=== PATIENT | female | born 1995 | race Caucasian/White ===

== ENCOUNTER 2018-06-14 07:30 | Emergency (ER) | payer OTHER, MEDICAID, SELFPAY ==
[2018-06-14 07:39] VITALS: BP 129/74; PULSE 89; RESP 18; TEMP 36.5; O2SAT 97
--- NOTE | 2018-06-14 07:48 | ED_ITS ---
HPI - Skin/Abscess/Foreign Bdy General Chief complaint: Skin/Abscess/Foreign Body Stated complaint: cyst in right arm pit Time Seen by Provider: 06/14/18 07:37 Source: patient Mode of arrival: ambulatory Limitations: no limitations History of Present Illness HPI narrative: 23-year-old female otherwise healthy here for evaluation of an infection and possible abscess to her right axilla. She states she noted it ea rlier this week. She has had 1 prior episode where she had an abscess that spontaneously drained on her knee. States she started noticing the swelling several days ago has worsened since that. Family member outlined the redness on her arm yesterday and since then the redness has progressed outside of this marking. Related Data Previous Rx's Medication Instructions Recorded sulfamethoxazole-trimethoprim 1 tab PO BID 5 Days #10 tab 06/14/18 [Bactrim DS] Allergies Allergy/AdvReac Type Severity Reaction Status Date / Time No Known Drug Allergies Allergy Verified 06/14/18 07:43 Review of Systems Constitutional Denies fever(s) Musculoskeletal Denies tingling Comments: no right shoulder or right elbow discomfort. Integumentary/Breasts Comments: Redness and swelling to the right adnexa Neurologic Denies tingling Hematologic/Lymphatic Denies easy bleeding and Denies easy bruising PFSH Medical History Healthy adult (Acute) Social History Smoking Status: Current some day smoker Social History Smoking Status: Current some day smoker Exam Initial Vital Signs Initial Vital Signs: Vital Signs Temperature 97.7 F 06/14/18 07:39 Pulse Rate 89 06/14/18 07:39 Respiratory Rate 18 06/14/18 07:39 Blood Pressure 129/74 06/14/18 07:39 Pulse Oximetry 97 06/14/18 07:39 Const General: cooperative, healthy appearing, comfortable, well developed, well groomed and No acute distress Orientation: alert and oriented x3 HENMT Head: normal to inspection and normocephalic Resp Effort & Inspection: normal respiratory effort Cardio Rate: regular rate Pulses: radial pulses present on the right Skin Other: patient with a 3 x 3 cm area of induration on the right axilla with approximately 15 cm area of redness extending down her arm on the medial aspect. No active draining. Psych Appearance: grossly normal and well kempt Procedures Abscess I/D Site: upper extremity Side (if applicable): right Local Anesthetic: lidocaine 1% Amount of anesthesia used (mL): 6 Technique: incised with #11 blade Irrigation: No Packing used?: none Course Vital Signs - 8 hr 06/14/18 07:39 Temperature 97.7 F Pulse Rate 89 Respiratory Rate 18 Blood Pressure 129/74 Pulse Oximetry 97 MDM - Skin/Abscess/Foreign Bdy MDM Narrative Medical decision making narrative: Bedside ultrasound showed a collection of abscess in the right axilla. This was incised with 11 braided with expression of purulent material. Patient does have an extensive area of cellulitis surrounding this area. Given the cellulitis will send home on a prescription for antibiotics. Patient was given care instructions and return precautions. She expressed understanding and agreement plan. Discharge Plan Departure Patient Disposition: Home Clinical Impression: Abscess of skin or subcutaneous tissue Qualifiers: Site of cutaneous abscess: extremity Site of cutaneous abscess of extremity: upper extremity Laterality: right Qualified Code(s): L02.413 - Cutaneous abscess of right upper limb Cellulitis Qualifiers: Site of cellulitis: extremity Site of cellulitis of extremity: axilla Laterality: right Qualified Code(s): L03.111 - Cellulitis of right axilla Instructions: DI for Incision and Drainage Activity Restrictions/Additional Instructions: change the bandage as needed. you can shower like normal. I would avoid using deodorant or shaving for right now. Expect some drainage. Take the antibiotics as directed. Return to the emergency department for any new or worsening symptoms Prescriptions: New sulfamethoxazole-trimethoprim [Bactrim DS] 800-160 mg tablet 1 tab PO BID 5 Days Qty: 10 RF: 0
== END 2018-06-14 08:10 | disposition home or self-care (01) ==
LOC: ED 07:59
PROVIDERS: Emergency Provider Emergency Medicine
DX: L02.413 Cutaneous abscess of right upper limb (principal)
CPT/HCPCS: 10060; 99282; 99283

== ENCOUNTER 2018-06-16 08:39 | Inpatient (IN) | payer OTHER, MEDICAID, SELFPAY ==
[2018-06-16] VITALS (8 sets, daily range): BP systolic 109–125; BP diastolic 60–72; PULSE 72–88; RESP 12–18; TEMP 36.3–37.4; O2SAT 99–100; BMI 26.2
--- NOTE | 2018-06-16 09:29 | ED.SKABFB ---
HPI - Skin/Abscess/Foreign Bdy General Chief complaint: Skin/Abscess/Foreign Body Stated complaint: Cyst R Underarm Time Seen by Provider: 06/16/18 09:29 Source: patient, old records reviewed and other (boyfriend) Mode of arrival: ambulatory Limitations: no limitations History of Present Illness HPI narrative: This is a 23-year-old female comes to the emergency department with complaint of worsening abscess. Patient states she was seen on the 14 of June. She had an abscess which was drained there was purulent fluid and she was started on Bactrim. Patient states that the redness has continued to spread and an area adjacent to the abscess seems to be worsening or failing back up. Patient states that she continues to have pain. She states she has been fighting fevers and pain taking ibuprofen at home. She denies any numbness, weakness or tingling in her extremity. She states she has been taking the antibiotics and she has had 5 doses total which is consistent from when they were prescribed. The redness has extended several cm beyond the original line from the day that she was seen. Related Data Previous Rx's Medication Instructions Recorded sulfamethoxazole-trimethoprim 1 tab PO BID 5 Days #10 tab 06/14/18 [Bactrim DS] Allergies Allergy/AdvReac Type Severity Reaction Status Date / Time No Known Drug Allergies Allergy Verified 06/14/18 07:43 Review of Systems Review of Systems ROS Unobtainable: All systems reviewed & are unremarkable except as noted in HPI and below Constitutional Reports fever(s) Musculoskeletal Reports as per HPI, Denies arthralgias, Denies limited range of motion, Denies numbness, Denies tingling and Reports other (Pain, swelling draining abscess.) Integumentary/Breasts Reports as per HPI Neurologic Denies focal weakness, Denies numbness and Denies tingling [facility] Medical History H/O wisdom tooth extraction (Acute) HELLP syndrome (HELLP), third trimester (Acute) History of UTI (Acute) History of asthma (Acute) Healthy adult (Acute) Family History Mother Osteoarthritis Grandmother Heart disease Lung disease Father Healthy adult Brother Healthy adult Brother Healthy adult Sister Healthy adult Sister Healthy adult Social History household members: significant other Smoking Status: Current some day smoker alcohol intake: current Social History household members: significant other Smoking Status: Current some day smoker alcohol intake: current Exam Narrative Exam Narrative: GENERAL: Alert and oriented x three, well-nourished, well-appearing female in mild distress. HEENT: Head normocephalic, atraumatic, EOMI, pupils reactive, face symmetric, moist mucous membranes NECK: Supple, full range of motion CARDIOVASCULAR: Regular rate and rhythm without murmurs, rubs or gallops. RESPIRATORY: Breath sounds equal bilaterally, no wheezes rales or rhonchi. ABDOMEN: Soft, nontender. Normoactive bowel sounds all 4 quadrants. No guarding or rebound, rigidity, no mass EXTREMITIES: Normal range of motion, no clubbing or edema. Neurovascularly intact. Patient has 2+ radial pulse on the right, full range of motion of her arm and fingers. The patient has normal strength. Normal sensation throughout the arm. Just distal to her right axilla there is a 1 cm opening with no active drainage. There is an area of surrounding induration, area is not fluctuent with palpation. patient has an area of cellulitis extending about 8 cm beyond. Patient has a line was drawn when she was initially seen in the hospital. It appears to be extending about 4 5 cm beyond that line. A line was drawn and dated for time/date prior to leaving ER for further monitoring. NEUROLOGICAL: Cranial nerves II through XII grossly intact. Moving all extremities SKIN: Warm, dry, no petechiae, see above. Initial Vital Signs Initial Vital Signs: Vital Signs Temperature 97.4 F L 06/16/18 08:42 Pulse Rate 88 06/16/18 08:42 Respiratory Rate 12 06/16/18 08:42 Blood Pressure 115/60 06/16/18 08:42 Pulse Oximetry 100 06/16/18 08:42 Course Orders Ordered: ED Orders 06/16/18 15:46 Education, smoking cessation ONGOING 06/16/18 19:00 MRSA PCR Routine 06/17/18 05:00 BMP [Basic Metabolic Panel] Routine CBC [Complete Blood Count AUTO DIFF] Routine Procalcitonin Routine Acetaminophen (Tylenol) 650 mg PO Q6HR PRN PRN Reason: As Needed for Fever/Mild Pain Al Hydrox/Mg Hydrox/Simethicone (Maalox Plus) 30 ml PO Q6HR PRN PRN Reason: Dyspepsia Bisacodyl (Dulcolax) 10 mg PO DAILY PRN PRN Reason: Constipation Heparin Sodium (Porcine) (Heparin) 5,000 unit SUBCUT BID [facility] Piperacillin/Tazobactam/Dextrose (Zosyn) 3.375 gm in 50 mls @ 100 mls/hr IV Q8H [facility] Last Admin: 06/16/18 17:41 Dose: 100 mls/hr Magnesium Hydroxide (Milk Of Magnesia) 30 ml PO DAILY PRN PRN Reason: Constipation Ondansetron HCl (Zofran Odt) 4 mg PO Q8HR PRN PRN Reason: Nausea And Vomiting Ondansetron HCl (Zofran) 4 mg IV Q8HR PRN PRN Reason: Nausea And Vomiting Promethazine HCl (Phenadoz) 12.5 mg [place] Q6HR PRN PRN Reason: Nausea And Vomiting Sennosides (Senna) 17.2 mg PO BEDTIME [facility] Discontinued Medications Gabapentin (Neurontin) 300 mg PO BEDTIME [facility] Vancomycin HCl 1,250 mg/ (Sodium Chloride) 250 mls @ 250 mls/hr IV NOW ONE Stop: 06/16/18 10:16 Last Infusion: 06/16/18 12:35 Dose: 0 mls/hr Admin: 06/16/18 11:15 Dose: 250 mls/hr Vital Signs - 8 hr 06/16/18 11:35 06/16/18 12:49 06/16/18 15:35 Temperature 97.5 F L 98.8 F Pulse Rate 79 81 72 Respiratory Rate 17 16 16 Blood Pressure 109/72 111/62 Blood Pressure [Left Arm] 125/69 Pulse Oximetry 100 100 99 MDM - Skin/Abscess/Foreign Bdy Lab Data Result diagrams: 06/16/18 09:25 06/16/18 09:25 Lab Results 06/16/18 06/16/18 06/16/18 Range/Units 09:25 09:25 09:25 WBC 9.4 (4.5-11.0) X10^3/uL RBC 4.45 (4.0-5.2) X10^6/uL Hgb 12.7 (12.0-16.0) g/dL Hct 38.0 (36-46) % MCV 85.5 (80-100) fL MCH 28.6 (26-34) PG MCHC 33.4 (30-36) % RDW 13.7 (11.6-14.8) % Plt Count 188 (150-400) X10^3/uL Neut % (Auto) 81.2 H (50-75) % Lymph % (Auto) 11.3 L (25-40) % Tucker % (Auto) 6.1 (3-14) % Eos % (Auto) 0.7 L (2-4) % Baso % (Auto) 0.7 (0-2) % Neut # (Auto) 7600 H (7632-9184) /uL Lymph # (Auto) 1100 (3505-3976) /uL Tucker # (Auto) 600 (0-900) /uL Eos # (Auto) 100 (0-450) /uL Baso # (Auto) 100 (0-100) /uL PT 14.1 H (10.1-12.7) SECONDS INR 1.2 (0.9-1.3) APTT 29 (26.4-36.2) SECONDS Sodium 137 (137-145) mmol/L Potassium 3.6 (3.4-5.1) mmol/L Chloride 100 (98-107) mmol/L Carbon Dioxide 25 (22-32) mmol/L BUN 9 (7-17) mg/dL Creatinine 0.70 (0.52-1.04) mg/dL Estimated GFR > 60.0 (>60) mL/min BUN/Creatinine Ratio 12.9 (6-22) Glucose 154 H (70-100) mg/dL Lactate (0.7-2.1) mmol/L Calcium 9.0 (8.4-10.2) mg/dL Total Bilirubin 0.7 (0.2-1.3) mg/dL Procalcitonin (<0.5) ng/mL 06/16/18 06/16/18 Range/Units 09:25 09:41 WBC (4.5-11.0) X10^3/uL RBC (4.0-5.2) X10^6/uL Hgb (12.0-16.0) g/dL Hct (36-46) % MCV (80-100) fL MCH (26-34) PG MCHC (30-36) % RDW (11.6-14.8) % Plt Count (150-400) X10^3/uL Neut % (Auto) (50-75) % Lymph % (Auto) (25-40) % Tucker % (Auto) (3-14) % Eos % (Auto) (2-4) % Baso % (Auto) (0-2) % Neut # (Auto) (9011-9654) /uL Lymph # (Auto) (7232-1385) /uL Tucker # (Auto) (0-900) /uL Eos # (Auto) (0-450) /uL Baso # (Auto) (0-100) /uL PT (10.1-12.7) SECONDS INR (0.9-1.3) APTT (26.4-36.2) SECONDS Sodium (137-145) mmol/L Potassium (3.4-5.1) mmol/L Chloride (98-107) mmol/L Carbon Dioxide (22-32) mmol/L BUN (7-17) mg/dL Creatinine (0.52-1.04) mg/dL Estimated GFR (>60) mL/min BUN/Creatinine Ratio (6-22) Glucose (70-100) mg/dL Lactate 1.4 (0.7-2.1) mmol/L Calcium (8.4-10.2) mg/dL Total Bilirubin (0.2-1.3) mg/dL Procalcitonin < 0.05 (<0.5) ng/mL MDM Narrative Medical decision making narrative: Patient had an abscess drained. She has induration but no clear fluctuance so formal ultrasound was ordered as she appears to be failing outpatient antibiotics after incision and drainage. Patient started on vancomycin. Chart does not show prior culture. Ultrasound of the upper extremity was Dr. Chowdary from General surgery was consulted and she evaluated patient. Feels that this is a very small fluid collection that she would see how the patient responds to IV antibiotics if not improving then will plan for surgical drainage but at this time would initially start with just IV antibiotics. Plan for admission to the hospitalist, spoke with Dr. Vazquez who accepts for inpatient. Discharge Plan Departure Patient Disposition: Admitted As Inpatient Clinical Impression: Cellulitis of arm, right, Abscess of arm, right Discharge Date/Time: 06/16/18 12:46 Interventions: ED Discharge Assessment Last Done: 06/16/18 12:46 Admit Date/Time: 06/16/18 11:54 Admit Provider: Kiara Vazquez
[2018-06-16 09:46] LABS: Add Manual Diff / Slide Review NO; Basophils Absolute Auto 100 /uL (0-100); Basophils Percent Auto 0.7 % (0-2); Eosinophils Absolute Auto 100 /uL (0-450); Eosinophils Percent Auto 0.7 % (2-4); Hemoglobin 12.7 g/dL (12.0-16.0); Lymphocytes Absolute Auto 1100 /uL (1100-4500); Lymphocytes Percent Auto 11.3 % (25-40); Mean Corpuscular HGB Conc 33.4 % (30-36); Mean Corpuscular Hemoglobin 28.6 PG (26-34); Mean Corpuscular Volume 85.5 fL (80-100); Monocytes Absolute Auto 600 /uL (0-900); Monocytes Percent Auto 6.1 % (3-14); Neutrophils Absolute Auto 7600 /uL (1500-7000); Neutrophils Percent Auto 81.2 % (50-75); Platelet Count 188 X10^3/uL (150-400); Red Blood Cell Count 4.45 X10^6/uL (4.0-5.2); Red Cell Distribution Width 13.7 % (11.6-14.8); White Blood Cell Count 9.4 X10^3/uL (4.5-11.0)
[2018-06-16 09:47] LABS: INR 1.2 (0.9-1.3); Prothrombin Time 14.1 SECONDS (10.1-12.7)
[2018-06-16 09:49] LABS: PTT Partial Thromboplastin Tim 29 SECONDS (26.4-36.2)
[2018-06-16 10:12] LABS: BUN Creatinine Ratio 12.9 (6-22); Bilirubin Total 0.7 mg/dL (0.2-1.3); Blood Urea Nitrogen 9 mg/dL (7-17); Carbon Dioxide 25 mmol/L (22-32); Chloride 100 mmol/L (98-107); Estimated Glomerular Filt Rate > 60.0 mL/min (>60); Glucose 154 mg/dL (70-100); HEMOLYSIS < 15 (0-50); Lactate (Lactic Acid) 1.4 mmol/L (0.7-2.1); Potassium 3.6 mmol/L (3.4-5.1); Sodium 137 mmol/L (137-145)
--- NOTE | 2018-06-16 10:14 | DI.US.S_ITS ---
PROCEDURE: US EXTREMELY NONVASC UPPER RT INDICATIONS: RECENT ABSCESS, POST INCISION AND DRAINAGE, WORSENING X 3 DA TECHNIQUE: Real-time scanning was performed of the right upper arm and axilla, with image documentation. COMPARISON: None. FINDINGS: Targeted ultrasound of the area of concern in the upper-inner right arm at the site of reported prior incision and drainage demonstrates a 1.2 x 1.4 x 0.9 cm oval indistinct mixed internal echogenicity fluid collection with mild peripheral vascularity. There is surrounding soft tissue edema. There is a second 1.9 x 1.8 x 0.6 cm irregular heterogeneously hypoechoic fluid collection located approximately 3 cm distal to the area described above within the right upper arm. This also demonstrates mild peripheral vascularity on Doppler ultrasound. There is surrounding soft tissue edema. Targeted ultrasound of the right axilla demonstrates right axillary lymphadenopathy, with the largest node measuring up to 2.7 x 1.9 x 1.3 cm. There is no demonstrates cortical thickening up to 7 mm. IMPRESSION: 1. 1.2 cm irregular fluid collection of the right upper inner arm at the site of reported prior incision and drainage, with additional 1.9 cm fluid collection approximately 3 cm distal to this area, with adjacent soft tissue edema. These fluid collections may represent phlegmon/developing abscesses given mild peripheral vascularity, versus hematoma. Consider followup ultrasound to demonstrate resolution. 2. Right axillary lymphadenopathy, likely reactive. Dictated by: Alcon Rodriguez M.D. on 06/16/2018 at 10:54 Approved by: Alcon Rodriguez M.D. on 06/16/2018 at 11:01
--- NOTE | 2018-06-16 10:21 | ED_ITS ---
HPI - Skin/Abscess/Foreign Bdy General Chief complaint: Skin/Abscess/Foreign Body Stated complaint: Cyst R Underarm Time Seen by Provider: 06/16/18 09:29 Source: patient, old records reviewed and other (boyfriend) Mode of arrival: ambulatory Limitations: no limitations History of Present Illness HPI narrative: This is a 23-year-old female comes to the emergency department with complaint of worsening abscess. Patient states she was seen on the 14 of June. She had an abscess which was drained there was purulent fluid and she was started on Bactrim. Patient states that the redness has continued to spread and an area adjacent to the abscess seems to be worsening or failing back up. Patient states that she continues to have pain. She states she has been fighting fevers and pain taking ibuprofen at home. She denies any numbness, weakness or tingling in her extremity. She states she has been taking the antibiotics and she has had 5 doses total which is consistent from when they were prescribed. The redness has extended several cm beyond the original line from the day that she was seen. Related Data Previous Rx's Medication Instructions Recorded sulfamethoxazole-trimethoprim 1 tab PO BID 5 Days #10 tab 06/14/18 [Bactrim DS] Allergies Allergy/AdvReac Type Severity Reaction Status Date / Time No Known Drug Allergies Allergy Verified 06/14/18 07:43 Review of Systems Review of Systems ROS Unobtainable: All systems reviewed & are unremarkable except as noted in HPI and below Constitutional Reports fever(s) Musculoskeletal Reports as per HPI, Denies arthralgias, Denies limited range of motion, Denies numbness, Denies tingling and Reports other (Pain, swelling draining abscess.) Integumentary/Breasts Reports as per HPI Neurologic Denies focal weakness, Denies numbness and Denies tingling [facility] Medical History H/O wisdom tooth extraction (Acute) HELLP syndrome (HELLP), third trimester (Acute) History of UTI (Acute) History of asthma (Acute) Healthy adult (Acute) Family History Mother Osteoarthritis Grandmother Heart disease Lung disease Father Healthy adult Brother Healthy adult Brother Healthy adult Sister Healthy adult Sister Healthy adult Social History household members: significant other Smoking Status: Current some day smoker alcohol intake: current Social History household members: significant other Smoking Status: Current some day smoker alcohol intake: current Exam Narrative Exam Narrative: GENERAL: Alert and oriented x three, well-nourished, well- appearing female in mild distress. HEENT: Head normocephalic, atraumatic, EOMI, pupils reactive, face symmetric, moist mucous membranes NECK: Supple, full range of motion CARDIOVASCULAR: Regular rate and rhythm without murmurs, rubs or gallops. RESPIRATORY: Breath sounds equal bilaterally, no wheezes rales or rhonchi. ABDOMEN: Soft, nontender. Normoactive bowel sounds all 4 quadrants. No guarding or rebound, rigidity, no mass EXTREMITIES: Normal range of motion, no clubbing or edema. Neurovascularly intact. Patient has 2+ radial pulse on the right, full range of motion of her arm and fingers. The patient has normal strength. Normal sensation throughout the arm. Just distal to her right axilla there is a 1 cm opening with no active drainage. There is an area of surrounding induration, area is not fluctuent with palpation. patient has an area of cellulitis extending about 8 cm beyond. Patient has a line was drawn when she was initially seen in the hospital. It appears to be extending about 4 5 cm beyond that line. A line was drawn and dated for time/date prior to leaving ER for further monitoring. NEUROLOGICAL: Cranial nerves II through XII grossly intact. Moving all extremities SKIN: Warm, dry, no petechiae, see above. Initial Vital Signs Initial Vital Signs: Vital Signs Temperature 97.4 F L 06/16/18 08:42 Pulse Rate 88 06/16/18 08:42 Respiratory Rate 12 06/16/18 08:42 Blood Pressure 115/60 06/16/18 08:42 Pulse Oximetry 100 06/16/18 08:42 Course Orders Ordered: ED Orders 06/16/18 15:46 Education, smoking cessation ONGOING 06/16/18 19:00 MRSA PCR Routine 06/17/18 05:00 BMP [Basic Metabolic Panel] Routine CBC [Complete Blood Count AUTO DIFF] Routine Procalcitonin Routine Acetaminophen (Tylenol) 650 mg PO Q6HR PRN PRN Reason: As Needed for Fever/Mild Pain Al Hydrox/Mg Hydrox/Simethicone (Maalox Plus) 30 ml PO Q6HR PRN PRN Reason: Dyspepsia Bisacodyl (Dulcolax) 10 mg PO DAILY PRN PRN Reason: Constipation Heparin Sodium (Porcine) (Heparin) 5,000 unit SUBCUT BID [facility] Piperacillin/Tazobactam/Dextrose (Zosyn) 3.375 gm in 50 mls @ 100 mls/hr IV Q8H [facility] Last Admin: 06/16/18 17:41 Dose: 100 mls/hr Magnesium Hydroxide (Milk Of Magnesia) 30 ml PO DAILY PRN PRN Reason: Constipation Ondansetron HCl (Zofran Odt) 4 mg PO Q8HR PRN PRN Reason: Nausea And Vomiting Ondansetron HCl (Zofran) 4 mg IV Q8HR PRN PRN Reason: Nausea And Vomiting Promethazine HCl (Phenadoz) 12.5 mg [place] Q6HR PRN PRN Reason: Nausea And Vomiting Sennosides (Senna) 17.2 mg PO BEDTIME [facility] Discontinued Medications Gabapentin (Neurontin) 300 mg PO BEDTIME [facility] Vancomycin HCl 1,250 mg/ (Sodium Chloride) 250 mls @ 250 mls/hr IV NOW ONE Stop: 06/16/18 10:16 Last Infusion: 06/16/18 12:35 Dose: 0 mls/hr Admin: 06/16/18 11:15 Dose: 250 mls/hr Vital Signs - 8 hr 06/16/18 11:35 06/16/18 12:49 06/16/18 15:35 Temperature 97.5 F L 98.8 F Pulse Rate 79 81 72 Respiratory Rate 17 16 16 Blood Pressure 109/72 111/62 Blood Pressure [Left Arm] 125/69 Pulse Oximetry 100 100 99 MDM - Skin/Abscess/Foreign Bdy Lab Data Result diagrams: 06/16/18 09:25 06/16/18 09:25 Lab Results 06/16/18 06/16/18 06/16/18 Range/Units 09:25 09:25 09:25 WBC 9.4 (4.5-11.0) X10^3/uL RBC 4.45 (4.0-5.2) X10^6/uL Hgb 12.7 (12.0-16.0) g/dL Hct 38.0 (36-46) % MCV 85.5 (80-100) fL MCH 28.6 (26-34) PG MCHC 33.4 (30-36) % RDW 13.7 (11.6-14.8) % Plt Count 188 (150-400) X10^3/uL Neut % (Auto) 81.2 H (50-75) % Lymph % (Auto) 11.3 L (25-40) % Lyon % (Auto) 6.1 (3-14) % Eos % (Auto) 0.7 L (2-4) % Baso % (Auto) 0.7 (0-2) % Neut # (Auto) 7600 H (1245-4055) /uL Lymph # (Auto) 1100 (0065-1284) /uL Lyon # (Auto) 600 (0-900) /uL Eos # (Auto) 100 (0-450) /uL Baso # (Auto) 100 (0-100) /uL PT 14.1 H (10.1-12.7) SECONDS INR 1.2 (0.9-1.3) APTT 29 (26.4-36.2) SECONDS Sodium 137 (137-145) mmol/L Potassium 3.6 (3.4-5.1) mmol/L Chloride 100 (98-107) mmol/L Carbon Dioxide 25 (22-32) mmol/L BUN 9 (7-17) mg/dL Creatinine 0.70 (0.52-1.04) mg/dL Estimated GFR > 60.0 (>60) mL/min BUN/Creatinine Ratio 12.9 (6-22) Glucose 154 H (70-100) mg/dL Lactate (0.7-2.1) mmol/L Calcium 9.0 (8.4-10.2) mg/dL Total Bilirubin 0.7 (0.2-1.3) mg/dL Procalcitonin (<0.5) ng/mL 06/16/18 06/16/18 Range/Units 09:25 09:41 WBC (4.5-11.0) X10^3/uL RBC (4.0-5.2) X10^6/uL Hgb (12.0-16.0) g/dL Hct (36-46) % MCV (80-100) fL MCH (26-34) PG MCHC (30-36) % RDW (11.6-14.8) % Plt Count (150-400) X10^3/uL Neut % (Auto) (50-75) % Lymph % (Auto) (25-40) % Lyon % (Auto) (3-14) % Eos % (Auto) (2-4) % Baso % (Auto) (0-2) % Neut # (Auto) (4659-0076) /uL Lymph # (Auto) (4776-4567) /uL Lyon # (Auto) (0-900) /uL Eos # (Auto) (0-450) /uL Baso # (Auto) (0-100) /uL PT (10.1-12.7) SECONDS INR (0.9-1.3) APTT (26.4-36.2) SECONDS Sodium (137-145) mmol/L Potassium (3.4-5.1) mmol/L Chloride (98-107) mmol/L Carbon Dioxide (22-32) mmol/L BUN (7-17) mg/dL Creatinine (0.52-1.04) mg/dL Estimated GFR (>60) mL/min BUN/Creatinine Ratio (6-22) Glucose (70-100) mg/dL Lactate 1.4 (0.7-2.1) mmol/L Calcium (8.4-10.2) mg/dL Total Bilirubin (0.2-1.3) mg/dL Procalcitonin < 0.05 (<0.5) ng/mL MDM Narrative Medical decision making narrative: Patient had an abscess drained. She has induration but no clear fluctuance so formal ultrasound was ordered as she appears to be failing outpatient antibiotics after incision and drainage. Patient started on vancomycin. Chart does not show prior culture. Ultrasound of the upper extremity was Dr. Chowdary from General surgery was consulted and she evaluated patient. Feels that this is a very small fluid co llection that she would see how the patient responds to IV antibiotics if not improving then will plan for surgical drainage but at this time would initially start with just IV antibiotics. Plan for admission to the hospitalist, spoke with Dr. Vazquez who accepts for inpatient. Discharge Plan Departure Patient Disposition: Admitted As Inpatient Clinical Impression: Cellulitis of arm, right, Abscess of arm, right Discharge Date/Time: 06/16/18 12:46 Interventions: ED Discharge Assessment Last Done: 06/16/18 12:46 Admit Date/Time: 06/16/18 11:54 Admit Provider: Kiara Vazquez
[2018-06-16] MEDS: VANCOMYCIN 1,250 MG in SODIUM CHLORIDE 0.9% 250 ML IV (11:15)
--- NOTE | 2018-06-16 12:05 | P.CONS_ITS ---
History of Present Illness Date Patient Seen: 06/16/18 Time Patient Seen: 12:00 Chief complaint: Cyst R Underarm Reason for consult: Cellulitis Requesting provider: Shira Gtz Narrative: Very pleasant 23-year-old lady was seen in the emergency room 2 days ago with what appeared to be an infected Pilar cyst. She underwent a limited I and D of the area with some purulent fluid drained. She was started on Septra. She reports that she has not been feeling well at home. She thinks the infection has been spreading down her arm and she has been fighting fevers and taking some ibuprofen. She was seen back in the emergency room today and had a limited ultrasound that reveals a little pocket that appears to be empty and is about 1 cm in size. She denies any nausea. She is primarily here for pain and fever. FORMERLY [facility] Medical History Healthy adult (Acute) Social History Smoking Status: Current some day smoker Social History Smoking Status: Current some day smoker Meds Home Medications Medication Instructions Recorded Confirmed Type sulfamethoxazole-trimethoprim 1 tab PO BID 5 Days #10 tab 06/14/18 Rx [Bactrim DS] Allergies Allergy/AdvReac Type Severity Reaction Status Date / Time No Known Drug Allergies Allergy Verified 06/14/18 07:43 Review of Systems Review of Systems The patient has noted more redness of the inside of the right arm. All systems reviewed & are unremarkable except as noted in HPI and below Exam Vital Signs (past 8 hours): - 06/16/18 08:42 06/16/18 11:35 Temperature 97.4 F L Pulse Rate 88 79 Respiratory Rate 12 17 Blood Pressure 115/60 Blood Pressure [Left Arm] 125/69 Pulse Oximetry 100 100 Oxygen Delivery Method Room Air Narrative Exam Narrative: Very pleasant and interactive lady in no distress HEENT: Normocephalic and atraumatic, pupils equal round reactive to light accommodation with anicteric sclera Lungs: Clear to auscultation bilaterally Heart: Regular rate and rhythm Abdomen: Soft and nontender with active bowel sounds Extremities: In the right axilla there is a 3/4 cm opening in the axilla and erythema extending to the elbow medially. Nothing is expressible through the wound. The patient does report that it has been draining minimally. Objective Labs Result Diagrams: 06/16/18 09:25 06/16/18 09:25 Labs: Laboratory Results - last 24 hr 06/16/18 06/16/18 06/16/18 09:25 09:25 09:25 WBC 9.4 RBC 4.45 Hgb 12.7 Hct 38.0 MCV 85.5 MCH 28.6 MCHC 33.4 RDW 13.7 Plt Count 188 Neut % (Auto) 81.2 H Lymph % (Auto) 11.3 L [place] % (Auto) 6.1 Eos % (Auto) 0.7 L Baso % (Auto) 0.7 Neut # (Auto) 7600 H Lymph # (Auto) 1100 [place] # (Auto) 600 Eos # (Auto) 100 Baso # (Auto) 100 PT 14.1 H INR 1.2 APTT 29 Sodium 137 Potassium 3.6 Chloride 100 Carbon Dioxide 25 BUN 9 Creatinine 0.70 Estimated GFR > 60.0 BUN/Creatinine Ratio 12.9 Glucose 154 H Lactate Calcium 9.0 Total Bilirubin 0.7 06/16/18 09:25 WBC RBC Hgb Hct MCV MCH MCHC RDW Plt Count Neut % (Auto) Lymph % (Auto) [place] % (Auto) Eos % (Auto) Baso % (Auto) Neut # (Auto) Lymph # (Auto) [place] # (Auto) Eos # (Auto) Baso # (Auto) PT INR APTT Sodium Potassium Chloride Carbon Dioxide BUN Creatinine Estimated GFR BUN/Creatinine Ratio Glucose Lactate 1.4 Calcium Total Bilirubin Assessment & Plan Assessment & Plan narrative: Right arm cellulitis after incision and drainage of a an abscess that is likely Pilar nature. At this point, there is no indication for surgical intervention. The pocket is so small and immediately under the skin that it will likely just evacuated itself when she is on an antibiotic that will cover the bug. As she has not responded well to Septra, I will consider combination like Levaquin and vancomycin. Hot packs should also help with the drainage process. I will plan to follow along while she is admitted here in the hospital and if the situation changes, we can certainly reconsider drainage in the operating room.
--- NOTE | 2018-06-16 15:46 | PM.HP.1 ---
History of Present Illness Date Patient Seen: 06/16/18 Chief complaint: Cyst R Underarm Narrative: Petty Hamilton is a 23-year-old female with a past medical history significant for possible HELLP during but otherwise in her usual state of health until she developed an ingrown hair for which she had I indeed 3 days ago in our ED who comes in complaining of increasing erythema. She states that she noticed increasing redness surpassed thing the outline drawn by ED staff 3 days ago for which she was instructed to return to the ED if this were to happen. She denies pain but does endorse mild tenderness when palpated. She has never had this before. However, she does endorse a cyst/ingrown hair on her knee a month ago which she expressed/drained and it is resolved. she endorses fever and chills for the last 2 days. She denies headache, chest pain, shortness of breath, abdominal pain, nausea, vomiting, dysuria, diarrhea or constipation. She Has no history of MRSA exposure. She was started on Bactrim by the ED physician and reports she has been taking this as prescribed. She has been elevating her right arm as much as possible but very little. She was also instructed by nurse to apply heat to the area which she has been doing. She has not iced the area at all. She reports she has kept the area dry. She has had no drainage pre or post I&D. She denies IV drug use. She does endorse daily, several times a day, marijuana use. Patient History Medical History H/O wisdom tooth extraction (Acute) HELLP syndrome (HELLP), third trimester (Acute) History of UTI (Acute) History of asthma (Acute) Healthy adult (Acute) Family History Mother Osteoarthritis Grandmother Heart disease Lung disease Father Healthy adult Brother Healthy adult Brother Healthy adult Sister Healthy adult Sister Healthy adult Social History household members: significant other Smoking Status: Current some day smoker alcohol intake: current Family & Social History Family History Mother Osteoarthritis Grandmother Heart disease Lung disease Father Healthy adult Brother Healthy adult Brother Healthy adult Sister Healthy adult Sister Healthy adult Social History: household members significant other Prior Living Arrangements House the patient has been with her significant other for 3 years. They have 1 daughter who is 1.5 years old. She works as a cook at [employer]. She smokes marijuana daily several times per day. She has never used tobacco. she drinks occasionally 1-2 times per month socially (1 drink). Safety & Behavioral: Feels Safe in Current Yes Environment Been Physically Hurt or No Threatened By a Person Suicidal Ideation Description None Suicide Plan Description No Plan Tobacco & Substance use: Tobacco type cannabis/marijuana Smoking Status Current some day smoker alcohol intake current alcohol intake frequency holiday/special occasion Substance Use Type marijuana Meds Home Medications Medication Instructions Recorded Confirmed Type sulfamethoxazole-trimethoprim 1 tab PO BID 5 Days #10 tab 06/14/18 06/16/18 Rx [Bactrim DS] Allergies Allergy/AdvReac Type Severity Reaction Status Date / Time No Known Drug Allergies Allergy Verified 06/14/18 07:43 Review of Systems Review of Systems A 10 system comprehensive review of systems was conducted with the patient and found to be negative except as above in the History of Present Illness. Exam Vital Signs (past 8 hours): - 06/16/18 08:42 06/16/18 11:35 06/16/18 12:49 Temperature 97.4 F L 97.5 F L Pulse Rate 88 79 81 Respiratory Rate 12 17 16 Blood Pressure 115/60 109/72 Blood Pressure [Left Arm] 125/69 Pulse Oximetry 100 100 100 Oxygen Delivery Method Room Air Oxygen Flow Rate 0 Narrative Exam Narrative: General: Young female sitting in bed and in no acute distress, well-developed, well-nourished, appropriately interactive. HEENT: Normocephalic, atraumatic. External ears without defect. Pupils equal, round, and reactive to light. Anicteric sclerae, moist conjunctivae, and no lid lag. Oropharynx free of erythema and cobble stoning with moist mucosa. Neck: Supple with full range of motion. No lymphadenopathy or thyromegaly. Cardiovascular: Regular rate and rhythm without murmurs, rubs, or gallops appreciated. Pulmonary: Clear to auscultation bilaterally without crackles, wheezes, or rhonchi. Normal respiratory effort with no use of accessory muscles. Abdomen: Soft, bowel sounds present, nontender, nondistended. No hepatosplenomegaly or masses appreciated. Extremities: right upper extremity with fluctuant mass medially close to axilla with erythematous area extending distally without line in place. No clubbing or cyanosis. No edema or erythema of other extremities. Skin: Normal temperature, turgor, and texture; no rash, ulcers, or subcutaneous nodules appreciated. Neurological: Cranial nerves grossly intact. Normal muscle strength, tone, and bulk. Reflexes, coordination, and sensory function within normal limits. No known gait impairment. Psychiatric: Normal mood and affect. Alert and oriented to person, place, and time. Objective Labs Result Diagrams: 06/16/18 09:25 06/16/18 09:25 Labs: Laboratory Results - last 24 hr 06/16/18 06/16/18 06/16/18 09:25 09:25 09:25 WBC 9.4 RBC 4.45 Hgb 12.7 Hct 38.0 MCV 85.5 MCH 28.6 MCHC 33.4 RDW 13.7 Plt Count 188 Neut % (Auto) 81.2 H Lymph % (Auto) 11.3 L [place] % (Auto) 6.1 Eos % (Auto) 0.7 L Baso % (Auto) 0.7 Neut # (Auto) 7600 H Lymph # (Auto) 1100 [place] # (Auto) 600 Eos # (Auto) 100 Baso # (Auto) 100 PT 14.1 H INR 1.2 APTT 29 Sodium 137 Potassium 3.6 Chloride 100 Carbon Dioxide 25 BUN 9 Creatinine 0.70 Estimated GFR > 60.0 BUN/Creatinine Ratio 12.9 Glucose 154 H Lactate Calcium 9.0 Total Bilirubin 0.7 06/16/18 09:25 WBC RBC Hgb Hct MCV MCH MCHC RDW Plt Count Neut % (Auto) Lymph % (Auto) [place] % (Auto) Eos % (Auto) Baso % (Auto) Neut # (Auto) Lymph # (Auto) [place] # (Auto) Eos # (Auto) Baso # (Auto) PT INR APTT Sodium Potassium Chloride Carbon Dioxide BUN Creatinine Estimated GFR BUN/Creatinine Ratio Glucose Lactate 1.4 Calcium Total Bilirubin Assessment & Plan Assessment & Plan narrative: Petty Hamilton is a 23-year-old female with a past medical history significant for possible HELLP during but otherwise in her usual state of health until she developed an ingrown hair for which she had I indeed 3 days ago in our ED who comes in complaining of increasing erythema. 1. Right arm abscess with cellulitis, present on admission. Active. -Patient was recently seen in our ED and is now status post I&D and failed outpatient antibiotic therapy on Bactrim. -WBC 9.4 with 81% PMNs. Ordered procalcitonin, pending. Continue to trend WBC and procalcitonin. -Right extremity ultrasound demonstrated 1.2 cm irregular fluid collection of the right upper inner arm at the site of reported prior incision and drainage, with additional 1.9 cm fluid collection approximately 3 cm distal to this area, with adjacent soft tissue edema. These fluid collections may represent phlegmon/developing abscesses given mild peripheral vascularity, versus hematoma. Right axillary lymphadenopathy, likely reactive. -Ordered Tylenol as needed for pain. -General surgery has been consulted and recommends conservative treatment with IV antibiotics. If does not readily improved will consider further intervention. -Continue vancomycin with dosing per pharmacy and Zosyn 3.375 g every 8 hr. 2. History of asthma as a child. 3. Marijuana use, present on admission. Stable. -Patient reports marijuana use several times daily. Patient denies IV drug use. -Counseled patient on marijuana use and smoking cessation. Patient is admitted under inpatient status with expected length of stay greater than 2 midnights due to severity of presenting symptoms, risk of adverse event, and complexity of treatment plan. Quality VTE Deep Vein Thrombosis/Pulmonary Embolism Present on Admission: No
[2018-06-16] MEDS: PIPERACILLIN-TAZO 3.375 GM/50 ML FROZ.PIGGY IV (17:41)
[2018-06-16 17:57] LABS: Procalcitonin < 0.05 ng/mL (<0.5)
[2018-06-16] MEDS: SENNOSIDES 8.6 MG TABLET 17.2 MG PO (21:17)
[2018-06-16] MEDS: HEPARIN 5,000 UNIT/ML VIAL 5000 UNIT SUBCUT (21:17)
[2018-06-17] VITALS (7 sets, daily range): BP systolic 104–120; BP diastolic 61–69; PULSE 66–88; RESP 14–20; TEMP 36.6–37.2; O2SAT 98–100
[2018-06-17] MEDS: PIPERACILLIN-TAZO 3.375 GM/50 ML FROZ.PIGGY IV (00:04)
[2018-06-17 06:23] LABS: Add Manual Diff / Slide Review NO; Basophils Absolute Auto 0 /uL (0-100); Basophils Percent Auto 0.4 % (0-2); Eosinophils Absolute Auto 200 /uL (0-450); Eosinophils Percent Auto 2.4 % (2-4); Hematocrit 36.2 % (36-46); Hemoglobin 11.8 g/dL (12.0-16.0); Lymphocytes Absolute Auto 2100 /uL (1100-4500); Lymphocytes Percent Auto 32.5 % (25-40); Mean Corpuscular HGB Conc 32.6 % (30-36); Mean Corpuscular Hemoglobin 27.9 PG (26-34); Mean Corpuscular Volume 85.7 fL (80-100); Monocytes Absolute Auto 400 /uL (0-900); Monocytes Percent Auto 6.5 % (3-14); Neutrophils Absolute Auto 3800 /uL (1500-7000); Neutrophils Percent Auto 58.2 % (50-75); Platelet Count 196 X10^3/uL (150-400); Red Blood Cell Count 4.23 X10^6/uL (4.0-5.2); Red Cell Distribution Width 13.4 % (11.6-14.8); White Blood Cell Count 6.6 X10^3/uL (4.5-11.0)
[2018-06-17 06:36] LABS: BUN Creatinine Ratio 12.5 (6-22); Blood Urea Nitrogen 10 mg/dL (7-17); Carbon Dioxide 27 mmol/L (22-32); Chloride 104 mmol/L (98-107); Estimated Glomerular Filt Rate > 60.0 mL/min (>60); Glucose 111 mg/dL (70-100); HEMOLYSIS < 15 (0-50); Potassium 4.4 mmol/L (3.4-5.1); Sodium 138 mmol/L (137-145)
[2018-06-17 06:47] LABS: Procalcitonin < 0.05 ng/mL (<0.5)
--- NOTE | 2018-06-17 08:03 | PM.PN.1 ---
Subjective Date Patient Seen: 06/17/18 Interval history: Petty Hamilton is a 23-year-old female with a past medical history significant for possible HELLP during but otherwise in her usual state of health until she developed an ingrown hair for which she had I indeed 3 days ago in our ED who comes in complaining of increasing erythema. The patient is resting in bed comfortably and in no acute distress. Her cellulitis has improved substantially in regards to erythema and the fluctuant mass/abscess has decreased in size and started to drain slightly with purulent material. She denies headache, shortness of breath, chest pain, abdominal pain, nausea, vomiting, fever, chills, dysuria, diarrhea or constipation. She is voiding and eliminating without difficulty. She is up ambulating without assistance. Exam Vital Signs (past 8 hours): - 06/16/18 23:15 Temperature 98.4 F Pulse Rate 82 Respiratory Rate 18 Blood Pressure 117/68 Pulse Oximetry 99 Oxygen Delivery Method Room Air Oxygen Flow Rate 0 Narrative Exam Narrative: General: Young female sitting in bed and in no acute distress, well-developed, well-nourished, appropriately interactive. HEENT: Normocephalic, atraumatic. External ears without defect. Pupils equal, round, and reactive to light. Anicteric sclerae, moist conjunctivae, and no lid lag. Oropharynx free of erythema and cobble stoning with moist mucosa. Neck: Supple with full range of motion. No lymphadenopathy or thyromegaly. Cardiovascular: Regular rate and rhythm without murmurs, rubs, or gallops appreciated. Pulmonary: Clear to auscultation bilaterally without crackles, wheezes, or rhonchi. Normal respiratory effort with no use of accessory muscles. Abdomen: Soft, bowel sounds present, nontender, nondistended. No hepatosplenomegaly or masses appreciated. Extremities: Right upper extremity with fluctuant mass/abscess medially close to axilla with slight decrease in size, less firm, with slight drainage of purulent material. Associated erythema/cellulitis extending distally has significantly improved since last exam. No clubbing or cyanosis. No edema or erythema of other extremities. Skin: Normal temperature, turgor, and texture; no rash, ulcers, or subcutaneous nodules appreciated. Neurological: Cranial nerves grossly intact. Normal muscle strength, tone, and bulk. Reflexes, coordination, and sensory function within normal limits. No known gait impairment. Psychiatric: Normal mood and affect. Alert and oriented to person, place, and time. Objective Labs Result Diagrams: 06/17/18 06:06 06/17/18 06:06 Labs: Laboratory Results - last 24 hr 06/16/18 06/16/18 06/16/18 09:25 09:25 09:25 WBC 9.4 RBC 4.45 Hgb 12.7 Hct 38.0 MCV 85.5 MCH 28.6 MCHC 33.4 RDW 13.7 Plt Count 188 Neut % (Auto) 81.2 H Lymph % (Auto) 11.3 L [place] % (Auto) 6.1 Eos % (Auto) 0.7 L Baso % (Auto) 0.7 Neut # (Auto) 7600 H Lymph # (Auto) 1100 [place] # (Auto) 600 Eos # (Auto) 100 Baso # (Auto) 100 PT 14.1 H INR 1.2 APTT 29 Sodium 137 Potassium 3.6 Chloride 100 Carbon Dioxide 25 BUN 9 Creatinine 0.70 Estimated GFR > 60.0 BUN/Creatinine Ratio 12.9 Glucose 154 H Lactate Calcium 9.0 Total Bilirubin 0.7 Procalcitonin Nasal Screen MRSA (PCR) 06/16/18 06/16/18 06/16/18 09:25 09:41 19:00 WBC RBC Hgb Hct MCV MCH MCHC RDW Plt Count Neut % (Auto) Lymph % (Auto) [place] % (Auto) Eos % (Auto) Baso % (Auto) Neut # (Auto) Lymph # (Auto) [place] # (Auto) Eos # (Auto) Baso # (Auto) PT INR APTT Sodium Potassium Chloride Carbon Dioxide BUN Creatinine Estimated GFR BUN/Creatinine Ratio Glucose Lactate 1.4 Calcium Total Bilirubin Procalcitonin < 0.05 Nasal Screen MRSA (PCR) Negative for mrsa 06/17/18 06/17/18 06/17/18 06:06 06:06 06:06 WBC 6.6 RBC 4.23 Hgb 11.8 L Hct 36.2 MCV 85.7 MCH 27.9 MCHC 32.6 RDW 13.4 Plt Count 196 Neut % (Auto) 58.2 D Lymph % (Auto) 32.5 D [place] % (Auto) 6.5 Eos % (Auto) 2.4 Baso % (Auto) 0.4 Neut # (Auto) 3800 Lymph # (Auto) 2100 [place] # (Auto) 400 Eos # (Auto) 200 Baso # (Auto) 0 PT INR APTT Sodium 138 Potassium 4.4 Chloride 104 Carbon Dioxide 27 BUN 10 Creatinine 0.80 Estimated GFR > 60.0 BUN/Creatinine Ratio 12.5 Glucose 111 H Lactate Calcium 9.0 Total Bilirubin Procalcitonin < 0.05 Nasal Screen MRSA (PCR) Assessment & Plan Assessment & Plan narrative: Petty Hamilton is a 23-year-old female with a past medical history significant for possible HELLP during but otherwise in her usual state of health until she developed an ingrown hair for which she had I indeed 3 days ago in our ED who comes in complaining of increasing erythema. 1. Right arm abscess with cellulitis, present on admission. Active. -Patient was recently seen in our ED and is now status post I&D and failed outpatient antibiotic therapy on Bactrim. -WBC 9.4 with 81% PMNs. Ordered procalcitonin, pending. Continue to trend WBC and procalcitonin. -Right extremity ultrasound demonstrated 1.2 cm irregular fluid collection of the right upper inner arm at the site of reported prior incision and drainage, with additional 1.9 cm fluid collection approximately 3 cm distal to this area, with adjacent soft tissue edema. These fluid collections may represent phlegmon/developing abscesses given mild peripheral vascularity, versus hematoma. Right axillary lymphadenopathy, likely reactive. -Ordered Tylenol as needed for pain. -General surgery has been consulted and recommends conservative treatment with IV antibiotics. If does not readily improve will consider possible surgical intervention but likely will not be needed. -Continue vancomycin with dosing per pharmacy. Patient was started on Zosyn 3.375 g every 8 hr in ED and switched to levofloxacin 750 mg IV daily per surgery. 2. History of asthma as a child. 3. Marijuana use, present on admission. Stable. -Patient reports marijuana use several times daily. Patient denies IV drug use. -Counseled patient on marijuana use and smoking cessation. Disposition: Likely to discharge home in 2-3 days depending on improvement with conservative treatment of cellulitis and abscess/fluid collection. If not vastly improving in 1-2 days likely will need surgical intervention Quality VTE Deep Vein Thrombosis/Pulmonary Embolism Present on Admission: No
[2018-06-17] MEDS: HEPARIN 5,000 UNIT/ML VIAL 5000 UNIT SUBCUT ×2 (09:21→20:40)
[2018-06-17] MEDS: levoFLOXacin 750 MG/150 ML PIGGYBACK 100 MG IV (09:21)
[2018-06-17] MEDS: SODIUM CHLORIDE 0.9% FLUSH 10 ML IV ×2 (09:21→20:40)
[2018-06-17] MEDS: VANCOMYCIN 1,500 MG in SODIUM CHLORIDE 0.9% 500 ML 333.333 ML IV (11:43)
[2018-06-17] MEDS: LACTOBACILLUS ACIDOPHILUS TABLET 1 EACH PO (17:50)
[2018-06-17] MEDS: VANCOMYCIN 1,250 MG in SODIUM CHLORIDE 0.9% 250 ML IV (18:38)
--- NOTE | 2018-06-17 19:04 | PC.NURSE ---
Pt A/O x3, deneis SOB, nausea, or pain at this time. RENA ventral aspect from axillary distal too elbow, decreased within marked boarders significantly, reported small serosang drainage in AM, slightly pink, and cool to touch, gram stain and blood cultures both negative. LFA Vanco then SL. 100%RA, LS clear, BT+, CMS +, indep to BRP to void. Using call light appropriately. Low fall risk.
[2018-06-18] VITALS: O2SAT 100
[2018-06-18] MEDS: VANCOMYCIN 1,250 MG in SODIUM CHLORIDE 0.9% 250 ML IV (02:01)
[2018-06-18 05:30] VITALS: BP 107/54; PULSE 75; RESP 14; TEMP 36.4; O2SAT 100
[2018-06-18 05:42] LABS: Add Manual Diff / Slide Review NO; Basophils Absolute Auto 0 /uL (0-100); Basophils Percent Auto 0.7 % (0-2); Eosinophils Absolute Auto 100 /uL (0-450); Eosinophils Percent Auto 2.1 % (2-4); Hematocrit 35.5 % (36-46); Hemoglobin 11.9 g/dL (12.0-16.0); Lymphocytes Absolute Auto 2000 /uL (1100-4500); Lymphocytes Percent Auto 38.4 % (25-40); Mean Corpuscular HGB Conc 33.5 % (30-36); Mean Corpuscular Hemoglobin 28.5 PG (26-34); Monocytes Absolute Auto 400 /uL (0-900); Monocytes Percent Auto 6.7 % (3-14); Neutrophils Absolute Auto 2700 /uL (1500-7000); Neutrophils Percent Auto 52.1 % (50-75); Platelet Count 202 X10^3/uL (150-400); Red Blood Cell Count 4.17 X10^6/uL (4.0-5.2); Red Cell Distribution Width 13.5 % (11.6-14.8); White Blood Cell Count 5.2 X10^3/uL (4.5-11.0)
--- NOTE | 2018-06-18 06:22 | PC.NURSE ---
developmental education instructor [id number]: Assumed care of pt with safe hand off. Safety checks done. Pt is a/ox4. Requesting chicken noodle soup. Right arm assessed with off going RN. slight bruising with a 2-3 inch palpable mass. Skin is not hot to touch. Pt complains of mild pain when area is touched or rubs on gown. VSS. 0500: VSS. Pt able to sleep through most of the night.
[2018-06-18 08:11] VITALS: BP 111/72; PULSE 77; RESP 16; TEMP 36.6; O2SAT 99
[2018-06-18 08:15] VITALS: O2SAT 99
--- NOTE | 2018-06-18 08:33 | PM.DS.1 ---
History of Present Illness Date Patient Seen: 06/18/18 Chief complaint: Cyst R Underarm Narrative: Petty Hamilton is a 23-year-old female with a past medical history significant for possible HELLP during but otherwise in her usual state of health until she developed an ingrown hair for which she had I indeed 3 days ago in our ED who comes in complaining of increasing erythema. She states that she noticed increasing redness surpassed thing the outline drawn by ED staff 3 days ago for which she was instructed to return to the ED if this were to happen. She denies pain but does endorse mild tenderness when palpated. She has never had this before. However, she does endorse a cyst/ingrown hair on her knee a month ago which she expressed/drained and it is resolved. she endorses fever and chills for the last 2 days. She denies headache, chest pain, shortness of breath, abdominal pain, nausea, vomiting, dysuria, diarrhea or constipation. She Has no history of MRSA exposure. She was started on Bactrim by the ED physician and reports she has been taking this as prescribed. She has been elevating her right arm as much as possible but very little. She was also instructed by nurse to apply heat to the area which she has been doing. She has not iced the area at all. She reports she has kept the area dry. She has had no drainage pre or post I&D. She denies IV drug use. She does endorse daily, several times a day, marijuana use. Discharge Providers Date of admission: 06/16/18 11:54 Discharge Date: 06/18/18 Discharge provider: Yuly Trent MD Summary Discharge Diagnosis: Right Arm Abcess Right Arm Cellulitis History of Childhood Asthma History of HELLP History of marijuana use Status at Discharge Cognitive/behavioral status at discharge: oriented Functional status at discharge: independent ambulation Overall status at discharge: patient is back to baseline Exam Vital Signs (past 8 hours): - 06/18/18 05:30 06/18/18 08:11 06/18/18 08:15 Temperature 97.6 F 97.8 F Pulse Rate 75 77 Respiratory Rate 14 16 Blood Pressure 107/54 L 111/72 Pulse Oximetry 100 99 99 Oxygen Delivery Method Room Air Oxygen Flow Rate 0 Narrative Exam Narrative: Pleasant Female in no acute distress Lungs: Clear to auscultation CV: RRR nl Sl S2 Abd: soft/non tender Right arm: decreased erythema and warmth, 1/4 tsp of pus expressed from wound, scant bleeding after, no other areas of fluctuance of pockets of abscesses Small indurated area palpated but non tender Objective Labs Result Diagrams: 06/18/18 05:19 06/17/18 06:06 Labs: Laboratory Results - last 24 hr 06/18/18 05:19 WBC 5.2 RBC 4.17 Hgb 11.9 L Hct 35.5 L MCV 85.0 MCH 28.5 MCHC 33.5 RDW 13.5 Plt Count 202 Neut % (Auto) 52.1 Lymph % (Auto) 38.4 [place] % (Auto) 6.7 Eos % (Auto) 2.1 Baso % (Auto) 0.7 Neut # (Auto) 2700 Lymph # (Auto) 2000 [place] # (Auto) 400 Eos # (Auto) 100 Baso # (Auto) 0 Discharge Plan Discharge Plan Discharge Problem: Cellulitis of arm, right, Abscess of arm, right Patient Disposition: Home Discharge comment: Follow up with [facility] for new patient appointment. Patient to follow up with the clinic before return to work Discharge Med Rec/Prescriptions Prescriptions: Continued sulfamethoxazole-trimethoprim [Bactrim DS] 800-160 mg tablet 1 tab PO BID 5 Days Qty: 10 RF: 0 Provider Discharge Instructions Diet: Diet as Tolerated Activity: as tolerated Skin/Wound/Dressing Care Report to your healthcare provider any signs of infection, such as:: chills, fever, increased pain and unusual drainage Dressing: gauze to area daily Discharge Data Attending Provider: Kiara Vazquez Admit Date/Time: 06/16/18 11:54 Quality VTE Deep Vein Thrombosis/Pulmonary Embolism Present on Admission: No
[2018-06-18] MEDS: LACTOBACILLUS ACIDOPHILUS TABLET 1 EACH PO (09:01)
[2018-06-18] MEDS: levoFLOXacin 750 MG/150 ML PIGGYBACK 100 MG IV (09:01)
[2018-06-18] MEDS: HEPARIN 5,000 UNIT/ML VIAL 5000 UNIT SUBCUT (09:02)
[2018-06-18] MEDS: SODIUM CHLORIDE 0.9% FLUSH 10 ML IV (09:02)
--- NOTE | 2018-06-18 10:28 | PC.NURSE ---
Day shift: IV site went bad. IV taken out. Dr Banks aware and stated that there is no need to give the IV antibiotics now. Wound culture back and POS for staph aureous. aware of that as well. Plan is to d/c at approx 1200 today.
--- NOTE | 2018-06-18 11:23 | PC.NURSE ---
Day shift: Paperwork signed and all questions answered. Pt has gauze and tape for covering wound. Pt has all personal belongings. Pt wants to ambulate to private car with SO and TECHNICAL DATA ANALYST. Pt has meds already. Dr Trent will contact Pt with any changes when sensitivity report becomes final.
--- NOTE | 2018-06-18 11:42 | PC.NURSE ---
Day shift: Left unit at approx 1140.
--- NOTE | 2018-06-18 12:42 | CM.DANOTE ---
DCP/Assessment: Reviewed chart. Patient is a 23yr old female admitted to [facility] with right arm abscess. No PCP listed. Primary payor is 1)[facility]. CLIENT PORTFOLIO MANAGER attempted to meet with patient to explain CM team role and d/c planning needs. Patient with Dr. Trent at time of visit. Notified patient and MD that CM engineering team supervisor would check back. Dr. Trent reports in AM rounds that patient will be discharging home today with no anticipate d/c planning needs. Reattempted visit but patient had already discharged. P: Home today. JAMEL George Discharge Planning/Care Management CM Discharge Assessment Start: 06/18/18 12:39 Freq: Status: Discharge Protocol: Document 06/18/18 12:39 KJS (Rec: 06/18/18 12:42 KJS [id number]) Discharge Planning Assessment Assigned Padder JAMEL George Contact Information Hieu Kelly (friend) [phone] Advance Directives? No History Provided By Patient Medical Record Has Patient been admitted in last 30 No days? Prior Living Arrangements Mobile home Household Members significant other Independent with ADL's Yes Is patient alert and oriented? Yes Caregiver for Another No Barriers to Discharge No Discharge Plan Home Review Status In Process Please Provide Date Initial DC 06/18/18 Assessment Was Performed Next Review Type Continued Stay Review
== END 2018-06-18 11:43 | disposition home or self-care (01) | DRG 383 ==
LOC: ED 11:20 → AC 11:55
PROVIDERS: Admitting Provider Internal Medicine; Emergency Provider Emergency Medicine; Visit Provider Internal Medicine
DX: L03.113 Cellulitis of right upper limb (principal); F12.90 Cannabis use, unspecified, uncomplicated
CPT/HCPCS: 36415; 36591; 76882; 80048; 82247; 83605; 84145; 85025; 85610; 85730; 87040; 87070; 87075; 87077; 87147; 87186; 87205; 87797; 94762; 96365; 96366; 99283; 99284; J1644; J1956; J2543

== ENCOUNTER 2018-08-07 23:15 | Emergency (ER) | payer OTHER, MEDICAID, SELFPAY ==
[2018-06-16 12:51] VITALS: BMI 26.2
[2018-08-07 23:24] VITALS: BP 111/56; PULSE 68; RESP 18; TEMP 36.8; O2SAT 99
--- NOTE | 2018-08-07 23:28 | ED.HA ---
HPI - Headache General Chief Complaint: Headache Stated Complaint: headaches that make her throw up Time Seen by Provider: 08/07/18 23:28 Source: patient Mode of arrival: ambulatory Limitations: no limitations History of Present Illness HPI Narrative: Patient is a 23-year-old female here for evaluation of a headache. She states that it started approximately 4 hours prior to arrival here in the emergency department. She states it was a gradual onset. Described as a left side and is throbbing. Has had some photophobia. Had a similar headache a couple days ago that went away on its own. Both of the headaches were so sedated with vomiting. She states she was told by her work that she needed to come into the emergency department for evaluation. Related Data Allergies Allergy/AdvReac Type Severity Reaction Status Date / Time No Known Drug Allergies Allergy Verified 06/14/18 07:43 Review of Systems Constitutional Denies fatigue, Denies fever(s), Denies frequent falls, Reports headache(s) and Denies weakness Eyes Denies blurry vision, Denies change in vision and Denies itchy eyes ENT Ears, Nose, Mouth, and Throat: Denies dental pain, Denies vertigo, Denies dizziness, Reports headache(s), Denies neck pain, Denies disequilibrium, Denies tinnitus, Denies sore throat and Denies throat swelling Cardiovascular Denies chest pain, Denies palpitations and Denies dyspnea Respiratory Denies dyspnea Gastrointestinal Gastrointestinal: Denies abdominal pain, Reports nausea and Reports vomiting Genitourinary Denies dysuria Musculoskeletal Denies myalgias, Denies arthralgias and Denies neck pain Integumentary/Breasts Denies rash Neurologic Denies abnormal speech, Denies behavioral changes, Denies confusion, Denies vertigo, Denies dizziness, Denies frequent falls, Reports headache(s), Denies focal weakness, Denies paresthesias, Denies disequilibrium and Denies weakness Psychiatric Denies behavioral changes and Denies confusion Endocrine Denies fatigue and Denies palpitations Hematologic/Lymphatic Denies easy bleeding and Denies easy bruising Allergic/Immunologic Denies urticaria, Denies itchy eyes and Denies throat swelling [facility] Medical History H/O wisdom tooth extraction (Acute) HELLP syndrome (HELLP), third trimester (Acute) Healthy adult (Acute) History of UTI (Acute) History of asthma (Acute) Family History (Updated 06/16/18 @ 16:39 by Kiara Vazquez DO) Mother Osteoarthritis Grandmother Heart disease Lung disease Father Healthy adult Brother Healthy adult Brother Healthy adult Sister Healthy adult Sister Healthy adult Social History household members: significant other Smoking Status: Current some day smoker alcohol intake: current Social History household members: significant other Smoking Status: Current some day smoker alcohol intake: current Exam Initial Vital Signs Initial Vital Signs: Vital Signs Temperature 98.2 F 08/07/18 23:24 Pulse Rate 68 08/07/18 23:24 Respiratory Rate 18 08/07/18 23:24 Blood Pressure 111/56 L 08/07/18 23:24 Pulse Oximetry 99 08/07/18 23:24 Const General: cooperative, healthy appearing, comfortable, well developed, well groomed and No acute distress Orientation: alert, awake and oriented x3 HENMT Head: normal to inspection and normocephalic Ears: TM's normal bilaterally Nose: external nose normal Face and sinus: normal facial exam Eyes Pupils: PERRL EOM: EOM intact bilaterally Neck Neck: no meningeal signs Resp Effort & Inspection: normal respiratory effort Auscultation: clear to auscultation bilaterally Cardio Rate: regular rate Rhythm: regular rhythm GI Inspection: non-distended Palpation: soft, No firm and No tender Skin Lesions: no lesions Rashes: no rashes Neuro General: alert, awake and oriented x3 Cranial Nerves: CN's II-XI intact bilaterally Cognition: normal cognition Speech: speech normal Gait: normal gait Motor: muscle tone normal throughout Sensory Exam: no sensory deficits noted Extrem General: capillary refill normal Psych Appearance: grossly normal and well kempt Scores GCS Calvin coma scale eye opening: Spontaneous Calvin coma scale verbal response: Orientated Mi coma scale motor response: Obey commands Mi coma scale total score: 15 Course Orders Ordered: ED Orders 08/07/18 23:46 CT head/brain wo con Stat Discontinued Medications Acetaminophen (Tylenol) 975 mg PO NOW ONE Stop: 08/07/18 23:47 Last Admin: 08/07/18 23:51 Dose: 975 mg Vital Signs - 8 hr 08/07/18 23:24 08/08/18 01:16 Temperature 98.2 F Pulse Rate 68 63 Respiratory Rate 18 12 Blood Pressure 111/56 L 111/55 L Pulse Oximetry 99 100 MDM - Headache Imaging Data CT scan - head: Radiologist's impression: Negative head CT [facility] Narrative Medical decision making narrative: Patient is afebrile and has no signs of meningitis. She has had 2 headaches over the past couple days however they were gradual in onset. They were associated with some vomiting. I had a discussion with the patient regarding her symptoms. I offered her IV medications for the headache however she declined. She stated that she was not currently nauseous. Informed her that at some point a workup of a headache head CT is warranted. Given the fact that she has never had any symptoms in the past she did opt to have the head CT done here in the emergency department which was unremarkable. this was done within 6 hours of the onset of the symptoms. Will hold on lumbar puncture. Patient has no signs of meningitis. She was given Tylenol here in the ER. Hold on further workup for now. Patient was given return precautions and follow-up instructions. She expressed understanding and agreement with plan. Discharge Plan Departure Patient Disposition: Home Clinical Impression: Headache Qualifiers: Headache type: unspecified Headache chronicity pattern: unspecified pattern Intractability: not intractable Qualified Code(s): R51 - Headache Discharge Date/Time: 08/08/18 01:16 Interventions: ED Discharge Assessment Last Done: 08/08/18 01:16 Instructions: DI for Headache Activity Restrictions/Additional Instructions: Contact your primary care doctor for a follow-up. You can take Tylenol and/or Motrin for any headaches. Return to the emergency department for any new or worsening symptoms
--- NOTE | 2018-08-07 23:46 | DI.CT.S_ITS ---
PROCEDURE: CT HEAD/BRAIN WO CON INDICATIONS: New onset headache TECHNIQUE: Noncontrast 4.5 mm thick angled axial sections acquired from the foramen magnum to the vertex, with coronal and sagittal reformats. For radiation dose reduction, the following was used: automated exposure control, adjustment of mA and/or kV according to patient size. COMPARISON: None. FINDINGS: Image quality: Excellent. CSF spaces: Basal cisterns are patent. No extra-axial fluid collections. Ventricles are normal in size and shape. Brain: No midline shift. No intracranial masses or hemorrhage. Herzog-white matter interface is normal. Skull and face: Calvarium and visualized facial bones are intact, without suspicious lesions. Sinuses: Visualized sinuses and mastoids are clear. IMPRESSION: 1. No acute intracranial abnormalities. No significant discrepancy with the coater brake linings radiology preliminary report. Dictated by: Nikos Spencer M.D. on 08/08/2018 at 7:09 Approved by: Nikos Spencer M.D. on 08/08/2018 at 7:10
[2018-08-07] MEDS: ACETAMINOPHEN 325 MG TABLET 975 MG PO (23:51)
[2018-08-08 01:16] VITALS: BP 111/55; PULSE 63; RESP 12; O2SAT 100
== END 2018-08-08 01:16 | disposition home or self-care (01) ==
LOC: ED 08-08 01:13
PROVIDERS: Emergency Provider Emergency Medicine
DX: R51 Headache (principal); R11.10 Vomiting, unspecified; H53.149 Visual discomfort, unspecified
CPT/HCPCS: 70450; 99282; 99284